=== PATIENT | male | born 1960 | race Caucasian/White ===

== ENCOUNTER 2018-11-09 05:35 | Day surgery (SDC) | payer BC, OTHER ==
[2018-11-09] MEDS ORDERED: LACTATED RINGERS 1,000 ML ONE (06:09)
[2018-11-09] MEDS ORDERED: PROPOFOL 200 MG/20 ML VIAL IV ONE (07:00)
--- NOTE | 2018-11-09 09:26 | OP ---
DATE OF PROCEDURE: 11/09/18 PREPROCEDURE DIAGNOSIS: 1. Colorectal cancer screening. POSTPROCEDURE DIAGNOSIS: 1. Small internal hemorrhoids. PROCEDURE: 1. Colonoscopy. SURGEON: Rommel Concepcion MD COMPLICATIONS: No immediate complications. SEDATION: The patient was sedated via IV propofol by the Anesthesia Department. CONSENT: Prior to the procedure, risks, benefits and alternatives to the therapy were discussed with the patient. The risks included bleeding, infection, perforation and . The patient agreed to the procedure and signed a consent. PREPROCEDURE ANESTHESIA ASSESSMENT: An examination revealed no contraindication to sedation. Mallampati class type 2, ASA grade assessment type 2. Throughout the procedure, the patient's blood pressure and additional vital signs were closely monitored. PROCEDURE: The patient was placed in the left lateral decubitus position and a rectal examination was performed. The rectal examination was within normal limits. The Olympus colonoscope was passed in the anus, rectum, traversing the colon to the level of the cecum as identified by the appendiceal orifice and the ileocecal valve. The scope was retracted and the mucosa was visualized. The entirety of the exam was performed under direct visualization. Preparation quality was good. The withdrawal time was greater than 6 minutes. The patient tolerated the procedure well. FINDINGS: 1. Small non-bleeding internal hemorrhoids were found in retroflexion. 2. Otherwise, the entire examination of the colon was normal. RECOMMENDATION: 1. Return the patient home. 2. Resume previous diet. 3. Repeat colonoscopy in the next 10 years. 4. Primary care physician may obtain FIT/Cologuard in 3 to 5 years' time. 5. Return to my office p.r.n. 6. Findings were discussed with the patient and family members. #[id number] MTDD
[2018-11-09 09:51] VITALS: BP 169/99; TEMP 97.6; O2SAT 100
== END 2018-11-09 09:54 ==
LOC: AMB 05:35
PROVIDERS: ATTEND Internal Medicine Gastroenterology
DX: Z12.11 Encounter for screening for malignant neoplasm of colon (principal); K64.8 Other hemorrhoids; I10 Essential (primary) hypertension; K21.9 Gastro-esophageal reflux disease without esophagitis; Z79.82 Long term (current) use of aspirin; Z79.899 Other long term (current) drug therapy
CPT/HCPCS: 00812; 45378; J3490; J7120